=== PATIENT | female | born 1980 | race Caucasian/White ===

== ENCOUNTER 2020-12-03 05:34 | Emergency (ER) | payer OTHER ==
[~2020-12-03] VITALS: Ht 160 cm; Wt 53.1 kg
[~2020-12-03 05:34] MED LIST: PRENATAL
[2020-12-03 05:37] VITALS: BP 127/87
[2020-12-03] MEDS ORDERED: LOESTRIN1 EAC1 PO (05:43)
[2020-12-03] MEDS ORDERED: SPIRONOLACTONE25 MG PO (05:43)
[2020-12-03 06:15] LABS: ABSOLUTE NEUTROPHILS 8.7 thou/uL (1.4-8.2); BASOPHILS 0.4 % (0.0-2.0); EOSINOPHILS 0.6 % (0.0-3.0); HEMATOCRIT 43.2 % (37.0-47.0); HEMOGLOBIN 14.7 gm/dL (12.0-15.0); LYMPHOCYTES 12.9 % (24.0-44.0); MCH 29.8 pg (26.0-34.0); MCHC 34.2 g/dL (28.0-37.0); MCV 87.3 fL (80.0-100.0); MONOCYTES 6.6 % (1.0-8.0); PLATELET COUNT 231 thou/uL (150-400); POLYS 79.5 % (36.0-66.0); RBC 4.94 mil/uL (4.20-5.00); RDW 12.3 % (10.5-14.5)
[2020-12-03 06:19] LABS: CALCIUM 9.7 mg/dL (8.5-10.1); POTASSIUM 3.3 mmol/L (3.5-5.1)
[2020-12-03] MEDS ORDERED: LOMOTIL TABLET1 EACH PO (06:36)
[2020-12-03] MEDS ORDERED: ZOFRAN ODT4 MG PO (06:36)
== END 2020-12-03 07:10 | disposition home or self-care (01) ==
LOC: ER 05:34
PROVIDERS: Emergency Medicine
DX: K52.9 Noninfective gastroenteritis and colitis, unspecified (principal); Z79.899 Other long term (current) drug therapy; Z88.8 Allergy status to other drugs, medicaments and biological substances